=== PATIENT | male | born 1970 | race Caucasian/White ===

== ENCOUNTER 2022-03-18 10:03 | Emergency (ER) | payer BC, OTHER ==
[2022-03-18 10:17] VITALS: BP 120/68
[2022-03-18 10:31] VITALS: BP 122/56
[2022-03-18 11:00] VITALS: BP 131/78
[2022-03-18 11:07] LABS: BASO% 0.3 % (0-3); EOS% 1.8 % (0-8); HEMATOCRIT 42.2 % (39.0-50.0); HEMOGLOBIN 14.4 g/dl (14.0-18.0); IMMATURE GRANULOCYTES 0.3 % (0.0-5.0); LYMPH% 20.9 % (15-41); MEAN CELL VOLUME 91.7 fL CALC (80.0-100.0); MEAN CORPUSCULAR HGB 31.3 pG CALC (26.0-32.0); MEAN CORPUSCULAR HGB CONC 34.1 g/dL CAL (32.0-36.0); MONO% 8.5 % (2-13); NEUT# 4.23 thou/uL (1.82-7.42); NEUT% 68.2 % (42-76); RED BLOOD COUNT 4.6 mill/uL (4.70-6.10); RED CELL DISTRI WIDTH 12.9 % (11.5-15.5)
[2022-03-18 11:25] LABS: ALBUMIN 4.2 g/dL (3.2-5.0); ALKALINE PHOSPHATASE 65 u/l (38-126); ANION GAP 9 (6-22 (CALC)); BILIRUBIN, TOTAL 0.5 mg/dL (0.0-1.4); BUN 19 mg/dL (9-20); BUN/CREATININE RATIO 17 (12-20 (CALC)); CARBON DIOXIDE 26 mmol/l (22-30); CHLORIDE 110 mmol/l (95-108); CREATININE 1.2 mg/dL (0.7-1.3); GFR FOR AFR.AMER. > 60 ML/MIN (>=60 (CALC)); GFR OTHER RACES > 60 ML/MIN (>=60 (CALC)); POTASSIUM 4.4 mmol/l (3.5-5.1); SGOT/AST 25 u/l (17-59); SODIUM 141 mmol/l (137-146); TOTAL PROTEIN 7.1 g/dL (6.3-8.2)
[2022-03-18 11:31] VITALS: BP 126/67
[2022-03-18 12:12] VITALS: BP 126/67
== END 2022-03-18 12:16 | disposition home or self-care (01) | DRG 556 ==
LOC: ED 10:03
PROVIDERS: Family Medicine
DX: M79.662 Pain in left lower leg (principal)

== ENCOUNTER 2022-08-24 07:19 | Day surgery (SDC) | payer BC, OTHER ==
[~2022-08-24] VITALS: Ht 170.2 cm; Wt 104.3 kg
[~2022-08-24 07:19] MED LIST: ASPIRIN 81 LOW81 MG PO; MITIGARE0.6 MG PO; NORVASC5 M1 PO; RAMIPRIL2.5 MG PO; ROSUVASTATIN CAL5 MG PO; XARELTO20 MG PO
[2022-08-24 10:01] VITALS: BP 141/83
== END 2022-08-24 10:01 | disposition home or self-care (01) | DRG 951 ==
LOC: ENDO 07:19
PROVIDERS: ATTEND Surgery
PROC: 0DBK8ZX Excision of Ascending Colon, Via Natural or Artificial Opening Endoscopic, Diagnostic (ICD-10-PCS; principal; 2022-08-24)
DX: Z12.11 Encounter for screening for malignant neoplasm of colon (principal); D12.2 Benign neoplasm of ascending colon; K64.8 Other hemorrhoids; I10 Essential (primary) hypertension

== ENCOUNTER 2023-04-25 13:11 | Emergency (ER) | payer BC, OTHER ==
[~2023-04-25] VITALS: Ht 170.2 cm; Wt 109.0 kg
[2023-04-25 14:42] VITALS: BP 179/104
[2023-04-25 14:45] VITALS: BP 176/108
[2023-04-25 15:00] VITALS: BP 182/103
[2023-04-25 16:23] VITALS: BP 169/92
== END 2023-04-25 16:33 | disposition home or self-care (01) | DRG 556 ==
LOC: ED 13:11
DX: M79.662 Pain in left lower leg (principal); I73.9 Peripheral vascular disease, unspecified; Z95.828 Presence of other vascular implants and grafts; Z86.718 Personal history of other venous thrombosis and embolism; Z79.01 Long term (current) use of anticoagulants